=== PATIENT | female | born 1970 | race Caucasian/White ===

== ENCOUNTER 2019-12-31 12:07 | Observation (INO) | payer OTHER ==
[~2019-12-31] VITALS: Ht 168.9 cm; Wt 58.1 kg
[2019-12-31] MEDS ORDERED: ASPIRIN 81MG TAB.CHEW ONE (12:35)
[2019-12-31 12:44] LABS: BASOPHILS % (AUTO) 1.4 % (0.0-5.0); EOSINOPHILS % (AUTO) 0.9 % (0.0-8.0); HEMATOCRIT 41.8 % (36-48); LYMPHOCYTES % (AUTO) 42.6 % (21.0-51.0); MEAN CORPUSCULAR HEMOGLOBIN 30.4 pg (27.0-33.0); MEAN CORPUSCULAR HGB CONC 33.3 g/dL (32.0-36.0); MEAN CORPUSCULAR VOLUME 91.5 fL (79-99); MONOCYTES % (AUTO) 6.7 % (3.0-13.0); PLATELET COUNT (AUTO) 244 K/uL (130-400); RED BLOOD CELL COUNT(AUTO) 4.57 MIL/uL (4.00-5.50); RED CELL DISTRIBUTION WIDTH 12.5 % (11.0-15.5); WHITE BLOOD COUNT (AUTO) 5.7 K/uL (4.8-10.8)
[2019-12-31 12:51] LABS: INR 0.9 (0.85-1.15); PARTIAL THROMBOPLASTIN TIME 24.8 SEC (26.3-35.5); PROTHROMBIN TIME 9.8 SEC (9.6-11.6)
[2019-12-31 12:52] LABS: BILIRUBIN,TOTAL 0.8 mg/dL (0.2-1.0); CREATININE 0.7 mg/dL (0.5-1.5); TOTAL PROTEIN, SERUM 7.2 g/dL (6.0-8.3)
[2019-12-31] MEDS ORDERED: POTASSIUM BICARB/CIT AC 25 MEQ TABLET.EFF ONE (13:11)
[2019-12-31] MEDS ORDERED: POTASSIUM CHLORIDE 20MEQ/100ML 100 ML IV PRN (13:45)
[2019-12-31] MEDS ORDERED: POTASSIUM CHLORIDE 10% ELIXIR 20 MEQ/15 ML UDCUP PO PRN (13:45)
[2019-12-31] MEDS ORDERED: LIDOCAINE HCL-MPF 1% 2ML VIAL IV PRN (13:45)
[2019-12-31 14:25] LABS: CHOLESTEROL 168 mg/dL (<200); HDL CHOLESTEROL 109 mg/dL (35-85); LDL DIRECT 80 mg/dL (0-99); TRIGLYCERIDES 29 mg/dL (30-200)
[2019-12-31 15:15] VITALS: BP 119/68
--- NOTE | 2019-12-31 17:00 | NUR ---
NOTE PATIENT ARRIVED FROM ER WITH DX CHEST PAIN R/O ACS. STATES SHE STARTED HAVING PAIN RIGHT CLAVICLE RADIATING TO CHEST. DENIES ANY OTHER PROBLEMS. SHE WAS INSTRUCTED BY DR DURHAM TO PAY ATTENTION WHEN SHE EATS HER DINNER TO SEE IF SHE HAS SWALLOWING PROBLEMS. SHE IS ABOUT TO HAVE DINNER.
--- NOTE | 2019-12-31 19:00 | NUR ---
NOTE PATIENT TOLD ME SHE DID HAVE SOME BURNING SENSATION CHEST AREA WHEN SHE WAS EATING DINNER. I PAGED DR DURHAM AND HE IS ORDERING AN UPPER GI SERIES FOR AM. I WILL INFORM THE PATIENT WHEN I MAKE ROUNDS WITH SOCIAL MEDIA INTERN.
[2019-12-31 20:27] VITALS: BP 99/64
[2019-12-31] MEDS ORDERED: METOPROLOL TARTRATE 25 MG TAB PO SCH (21:00)
[2019-12-31] MEDS ORDERED: FAMOTIDINE 20MG TAB 20 MG TAB PO SCH (21:00)
[2019-12-31 21:24] LABS: CREATINE KINASE, TOTAL 60 U/L (21-232); MYOGLOBIN 25 ng/mL (10-92); TROPONIN I < 0.04 ng/mL (0.00-0.06)
[2019-12-31] MEDS ORDERED: FAMOTIDINE/PF 20 MG/2 ML VIAL IV ONE (21:36)
[2019-12-31] MEDS: POTASSIUM CHLORIDE 20 MEQ ERTAB PO PRN ×2 (21:42→23:58)
[2020-01-01] MEDS: POTASSIUM CHLORIDE 20 MEQ ERTAB PO PRN ×2 (00:17→01:03)
[2020-01-01 00:31] VITALS: BP 106/58
[2020-01-01 04:18] VITALS: BP 112/73
[2020-01-01 05:06] LABS: BASOPHILS % (AUTO) 1.1 % (0.0-5.0); EOSINOPHILS % (AUTO) 1.1 % (0.0-8.0); HEMATOCRIT 38.5 % (36-48); LYMPHOCYTES % (AUTO) 43.3 % (21.0-51.0); MEAN CORPUSCULAR HEMOGLOBIN 30.4 pg (27.0-33.0); MEAN CORPUSCULAR HGB CONC 32.7 g/dL (32.0-36.0); MEAN CORPUSCULAR VOLUME 92.8 fL (79-99); MONOCYTES % (AUTO) 6.3 % (3.0-13.0); PLATELET COUNT (AUTO) 238 K/uL (130-400); RED BLOOD CELL COUNT(AUTO) 4.15 MIL/uL (4.00-5.50); RED CELL DISTRIBUTION WIDTH 12.5 % (11.0-15.5); WHITE BLOOD COUNT (AUTO) 6.2 K/uL (4.8-10.8)
[2020-01-01 05:13] LABS: CREATININE 0.7 mg/dL (0.5-1.5); POTASSIUM 4.3 mmol/L (3.5-5.1)
[2020-01-01 07:30] VITALS: BP 86/46
[2020-01-01] MEDS ORDERED: DIATR MEGLU/DIATRIZOATE SODIUM 30 ML BOTTLE ONE (08:35)
[2020-01-01] MEDS ORDERED: FAMOTIDINE/PF 20 MG/2 ML VIAL IV SCH (09:00)
[2020-01-01] MEDS: ATORVASTATIN CALCIUM 20 MG TABLET PO SCH (10:46)
[2020-01-01] MEDS: ASPIRIN 81MG TAB.CHEW PO SCH (10:46)
--- NOTE | 2020-01-01 10:48 | NUR ---
DYSPHAGIA EVAL COMPLETED. -S/S OF ASPIRATION. RECOMMEND REGULAR TEXTURE, THIN LIQUIDS; PILLS WHOLE. Addendum: 01/01/20 at 1048 by CANDICE QUINTERO, [facility] Amended: Links added.
[2020-01-01 11:00] VITALS: BP 110/62
[2020-01-01 16:00] VITALS: BP 111/73
--- NOTE | 2020-01-01 16:04 | NUR ---
INITIAL Patient lives with spouse, Ramon Hernandez, . Another emergency contact is son, Guillermo Alvarado, . No home services or DME. Patient is independent and drives. 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 PCP is Dr. Bean. Pharmacy is [facility] located in [place]. DCP is home.
[2020-01-01 20:00] VITALS: BP 93/64
[2020-01-01] MEDS: PANTOPRAZOLE SODIUM 40 MG TABLET.DR PO SCH (21:25)
[2020-01-02] VITALS (11 sets, daily range): BP systolic 90–108; BP diastolic 40–71
--- NOTE | 2020-01-02 06:25 | NUR ---
PATIENT UPDATE Slept well overnight,no complaints of any chest pain, no shortness of breath, no problems with swallowing. NPO post mn, taken down to GI lab for EGD with MAC by Dr. Jauregui.
[2020-01-02 06:55] LABS: BASOPHILS % (AUTO) 1.1 % (0.0-5.0); EOSINOPHILS % (AUTO) 1.4 % (0.0-8.0); HEMATOCRIT 38.3 % (36-48); MEAN CORPUSCULAR HEMOGLOBIN 30.2 pg (27.0-33.0); MEAN CORPUSCULAR HGB CONC 32.9 g/dL (32.0-36.0); MEAN CORPUSCULAR VOLUME 91.8 fL (79-99); MONOCYTES % (AUTO) 5.8 % (3.0-13.0); NEUTROPHILS % (AUTO) 44.5 % (40.0-77.0); PLATELET COUNT (AUTO) 219 K/uL (130-400); RED BLOOD CELL COUNT(AUTO) 4.17 MIL/uL (4.00-5.50); RED CELL DISTRIBUTION WIDTH 12.5 % (11.0-15.5); WHITE BLOOD COUNT (AUTO) 5.6 K/uL (4.8-10.8)
[2020-01-02 07:17] LABS: CREATININE 0.7 mg/dL (0.5-1.5); MAGNESIUM 1.8 mg/dL (1.80-2.40); POTASSIUM 3.7 mmol/L (3.5-5.1)
[2020-01-02 07:18] LABS: INR 0.93 (0.85-1.15); PROTHROMBIN TIME 10.1 SEC (9.6-11.6)
[2020-01-02] MEDS ORDERED: PROPOFOL 10 MG/ML 20ML VIAL IV ONE (07:20)
[2020-01-02] MEDS ORDERED: LIDOCAINE HCL-MPF 2% 5ML VIAL ONE (07:20)
[2020-01-02] MEDS: ASPIRIN 81MG TAB.CHEW PO SCH (09:04)
[2020-01-02] MEDS: ATORVASTATIN CALCIUM 20 MG TABLET PO SCH (09:04)
[2020-01-02] MEDS: PANTOPRAZOLE SODIUM 40 MG TABLET.DR PO SCH (09:04)
[2020-01-02] MEDS ORDERED: PANT40TA PO (12:36)
--- NOTE | 2020-01-02 15:04 | NUR ---
PATIENT DISCHARGE PATIENT DISCHARGED, IV DISCONTINUED, CATHLON INTACT, BLEEDING CONTROLLED, PATIENT TOLERATED WITHOUT INCIDENT.
== END 2020-01-02 15:05 | disposition home or self-care (01) ==
LOC: EDH 12:07 → EDHIP 13:37 → 3CH 15:07
PROVIDERS: ADMIT Internal Medicine; ATTEND Internal Medicine
DX: K22.8 Other specified diseases of esophagus (principal); R07.89 Other chest pain; K31.89 Other diseases of stomach and duodenum; R12 Heartburn; M25.511 Pain in right shoulder; R13.10 Dysphagia, unspecified; E87.6 Hypokalemia; Z87.891 Personal history of nicotine dependence
CPT/HCPCS: 36415 ×3; 43239; 71045; 74240; 74248; 80048 ×2; 80053; 80061; 82550 ×2; 83735; 83874; 84484 ×2; 85025 ×3; 85378; 85610 ×2; 85730; 86677; 92610; 93005 ×2; 96374; 99285; A4600; A4620; G0378 ×12; J2704; J3490 ×3; Q9963

== ENCOUNTER → 2020-05-27 | Outpatient (CLI) | payer OTHER ==
[~2020-05-27] MED LIST: PANT40TA PO
== END | disposition home or self-care (01) ==
LOC: LAB 17:58
PROVIDERS: ATTEND Emergency Medicine
DX: Z77.110 Contact with and (suspected) exposure to air pollution (principal)
CPT/HCPCS: 36415; 87040

== ENCOUNTER → 2020-07-01 | Outpatient (CLI) | payer OTHER ==
[~2020-07-01] MED LIST changes: +REGADENOSON 0.4 MG/5 ML PF SYG IVP SCH
== END | disposition home or self-care (01) ==
LOC: SHCH 08:11
PROVIDERS: ATTEND Internal Medicine Cardiovascular Disease
DX: I25.10 Atherosclerotic heart disease of native coronary artery without angina pectoris (principal); R06.00 Dyspnea, unspecified; R51 Headache
CPT/HCPCS: 78452; 93017; 96374; A9500 ×2; J2785

== ENCOUNTER → 2020-07-08 | Outpatient (CLI) | payer OTHER ==
[~2020-07-08] MED LIST changes: -REGADENOSON 0.4 MG/5 ML PF SYG IVP SCH
[2020-07-08 12:08] LABS: CHOLESTEROL 201 mg/dL (<200); HDL CHOLESTEROL 117 mg/dL (35-85); LDL DIRECT 110 mg/dL (0-99); TRIGLYCERIDES 77 mg/dL (30-200)
== END | disposition home or self-care (01) ==
LOC: RAH 08:27
PROVIDERS: ATTEND Internal Medicine
DX: Z12.31 Encounter for screening mammogram for malignant neoplasm of breast (principal); M17.0 Bilateral primary osteoarthritis of knee
CPT/HCPCS: 36415; 77067; 80061

== ENCOUNTER → 2023-06-18 | Outpatient (CLI) | payer OTHER | END | disposition home or self-care (01) | LOC: RAH 09:41 | PROVIDERS: ATTEND Internal Medicine | DX: Z13.6 Encounter for screening for cardiovascular disorders (principal) | CPT/HCPCS: 75571 ==

== ENCOUNTER → 2024-04-17 | Outpatient (CLI) | payer BC ==
[2024-04-17 15:31] LABS: CHOLESTEROL 204 mg/dL (<200); HDL CHOLESTEROL 89 mg/dL (35-85); LDL DIRECT 106 mg/dL (0-99); TRIGLYCERIDES 51 mg/dL (30-200)
== END | disposition home or self-care (01) ==
LOC: LAB 10:00
PROVIDERS: ATTEND Internal Medicine Cardiovascular Disease
DX: M17.0 Bilateral primary osteoarthritis of knee (principal)
CPT/HCPCS: 36415; 80061

== ENCOUNTER → 2024-07-14 | Outpatient (CLI) | payer BC ==
[2024-07-14 13:00] LABS: CHOLESTEROL 199 mg/dL (<200); HDL CHOLESTEROL 81 mg/dL (35-85); LDL DIRECT 107 mg/dL (0-99); TRIGLYCERIDES 60 mg/dL (30-200)
== END | disposition home or self-care (01) ==
LOC: LAB 09:52
PROVIDERS: ATTEND Internal Medicine Cardiovascular Disease
DX: E78.5 Hyperlipidemia, unspecified (principal)
CPT/HCPCS: 36415; 80061